=== PATIENT | female | born 1975 | race Caucasian/White ===

== ENCOUNTER 2020-01-30 11:40 | Inpatient (IN) ==
[~2020-01-30 11:40] MED LIST: *HR* HYDROmorphone (PF) 1 MG/ML SYRINGE IVP PRN; *HR* HYDROmorphone 2 MG TABLET PO PRN; *HR* Labetalol 20 MG/4 ML SYRINGE IVP PRN; *HR* OxyCODONE Immed Rel 5 MG TABLET PO PRN; *HR* Promethazine 25 MG/ML VIAL IVP PRN; Acetaminophen IV 1,000 MG/100 ML INFUS..BTL IVPB ONE; Famotidine 20 MG/2 ML VIAL IVP ONE; Pregabalin 75 MG CAPSULE PO ONE; Total Joint Mixture (50 ml) INTRAART ONE
[2020-01-30] MEDS ORDERED: Ondansetron 4 MG/2 ML VIAL ONE (12:00)
[2020-01-30] MEDS ORDERED: *HR* Propofol 200 MG/20 ML VIAL IVP ONE (12:00)
[2020-01-30] MEDS ORDERED: Dexamethasone 4 MG/ML VIAL ONE (12:00)
[2020-01-30] MEDS ORDERED: Lidocaine -MPF 2% 2 ML VIAL ONE (12:00)
[2020-01-30] MEDS ORDERED: *HR* Midazolam HCl 2 MG/2 ML VIAL ONE (12:06)
[2020-01-30] MEDS ORDERED: *HR* FentaNYL (PF) 100 MCG/2 ML VIAL ONE (12:06)
[2020-01-30] MEDS ORDERED: ROPIVACAINE/PF/NS 0.25% 1 EACH SYRINGE INTRAART ONE (12:12)
[2020-01-30] MEDS ORDERED: Vancomycin 1,500 MG/265 ML IV.SOLN IVPB ONE (12:16)
[2020-01-30] MEDS ORDERED: Ethanol\\Acetic Acid\\Na Ace\\Ben 1,000 ML IRRIG.SOLN IR ONE (12:28)
[2020-01-30] MEDS ORDERED: Vancomycin 1,000 MG VIAL ONE (12:28)
[2020-01-30] MEDS ORDERED: Ringers Solution, Lactated 1,000 ML IVC SCH ×2 (12:30→15:32)
[2020-01-30] MEDS ORDERED: *HR* Magnesium Sulfate 1 GM/2 ML VIAL ONE (13:05)
[2020-01-30] MEDS ORDERED: Tranexamic Acid 1,000 MG/10 ML VIAL ONE (13:05)
[2020-01-30] MEDS ORDERED: *HR* HYDROMORPHONE 2 MG/ML VIAL ONE (13:12)
[2020-01-30] MEDS ORDERED: *HR* PHENYLEPHRINE 1,000 MCG/10 ML SYRINGE IVP ONE (13:36)
[2020-01-30 14:50] LABS: Hematocrit 37.5 % (35.3-44.9); Hemoglobin 11.9 g/dL (11.5-15.4)
[2020-01-30] MEDS ORDERED: traZODone 50 MG TABLET PO PRN (15:32)
[2020-01-30] MEDS ORDERED: MOM Conc 10 ML UD.LIQ PO PRN (15:32)
[2020-01-30] MEDS ORDERED: Ondansetron 4 MG/2 ML VIAL IVP PRN (15:32)
[2020-01-30] MEDS ORDERED: D5% in Water 1,000 ML IVC PRN (15:32)
[2020-01-30] MEDS ORDERED: Sennosides 8.6 MG TABLET PO PRN (15:32)
[2020-01-30] MEDS ORDERED: *HR* Promethazine 25 MG/ML VIAL IVP PRN (15:32)
[2020-01-30] MEDS ORDERED: *HR* Dextrose 50 % in Water (Vial) 50 ML VIAL IVP PRN (15:32)
[2020-01-30] MEDS ORDERED: Dextrose Gel 15 GM/37.5 ML TUBE PO PRN ×2 (15:32)
[2020-01-30] MEDS ORDERED: Naloxone 0.4 MG/ML INJ IVP PRN (15:32)
[2020-01-30] MEDS: Ascorbic Acid 500 MG TABLET PO SCH (16:40)
[2020-01-30] MEDS: *HR* OxyCODONE Immed Rel 5 MG TABLET PO PRN (16:41)
[2020-01-30] MEDS: Gabapentin 400 MG CAPSULE PO SCH ×2 (16:42→21:58)
[2020-01-30] MEDS: Insulin LISPRO 300 UNITS/3 ML VIAL SQ SCH ×2 (18:12→21:31)
[2020-01-31] MEDS ORDERED: Vancomycin 1,500 MG/265 ML IV.SOLN IVPB ONE (01:00)
[2020-01-31] MEDS: Insulin LISPRO 300 UNITS/3 ML VIAL SQ SCH ×4 (08:17→21:21)
[2020-01-31] MEDS: Ascorbic Acid 500 MG TABLET PO SCH ×2 (08:22→15:23)
[2020-01-31] MEDS: Gabapentin 400 MG CAPSULE PO SCH ×3 (08:22→20:38)
[2020-01-31] MEDS: Multivit/Ca/Min/Fe/FA 1 TAB TABLET PO SCH (08:22)
[2020-01-31] MEDS: lisinopriL 20 MG TABLET PO SCH (08:23)
[2020-01-31] MEDS: Loratadine 10 MG TABLET PO SCH (08:23)
[2020-01-31] MEDS: Aspirin Enteric Coated 81 MG Tablet PO SCH (08:23)
[2020-01-31] MEDS ORDERED: Aspirin Enteric Coated 81 MG Tablet PO SCH (09:00)
[2020-01-31 11:31] LABS: Basophils # 0.1 K/mcL (0.0-0.2); Basophils % 0.3 %; Eosinophils % 0.1 %; Hematocrit 38.1 % (35.3-44.9); Hemoglobin 11.6 g/dL (11.5-15.4); Immature Granulocytes % 0.6 % (0-4); Lymphocytes # 1.5 K/mcL (0.6-4.6); Lymphocytes % 9.6 %; Mean Corpuscular HGB Conc 30.4 g/dL (31.6-35.5); Mean Corpuscular Hemoglobin 28.6 pg (28.0-33.3); Mean Corpuscular Volume 93.8 fL (83.0-100.0); Mean Platelet Volume 9.4 fL (9.4-12.4); Monocytes # 0.9 K/mcL (0.0-1.3); Monocytes % 5.4 %; Neutrophils # 13.3 K/mcL (1.6-8.9); Platelet Count 302 K/mcL (140-400); Red Blood Count 4.06 M/mcL (3.82-4.97); Red Cell Distribution Width 13.6 % (11.5-14.5); White Blood Count 15.8 K/mcL (4.3-11.1)
[2020-01-31 11:48] LABS: BUN/Creatinine Ratio 16 (6-26); Blood Urea Nitrogen 14 mg/dL (6-20); Calcium 8.6 mg/dL (8.6-10.3); Carbon Dioxide 24 mEq/L (23-29); Chloride 101 mEq/L (98-107); Glucose 152 mg/dL (70-105); Osmolality,Calculated 279 (280-300); Potassium 3.7 mEq/L (3.5-5.1); Sodium 133 mEq/L (136-145); eGFR For African Americans > 60 (> 60); eGFR For Non-African Americans > 60 (> 60)
[2020-01-31] MEDS: *HR* OxyCODONE Immed Rel 5 MG TABLET PO PRN ×2 (15:22→20:38)
[2020-02-01] MEDS: *HR* OxyCODONE Immed Rel 5 MG TABLET PO PRN ×5 (04:29→22:07)
[2020-02-01 05:01] LABS: Basophils # 0.1 K/mcL (0.0-0.2); Basophils % 0.8 %; Eosinophils # 0.1 K/mcL (0.0-0.6); Eosinophils % 0.5 %; Hematocrit 33.6 % (35.3-44.9); Hemoglobin 10.5 g/dL (11.5-15.4); Immature Granulocytes % 0.5 % (0-4); Lymphocytes # 2.9 K/mcL (0.6-4.6); Lymphocytes % 28.7 %; Mean Corpuscular HGB Conc 31.3 g/dL (31.6-35.5); Mean Corpuscular Hemoglobin 29.4 pg (28.0-33.3); Mean Corpuscular Volume 94.1 fL (83.0-100.0); Mean Platelet Volume 9.5 fL (9.4-12.4); Monocytes # 0.9 K/mcL (0.0-1.3); Monocytes % 8.9 %; Neutrophils # 6.2 K/mcL (1.6-8.9); Platelet Count 250 K/mcL (140-400); Red Blood Count 3.57 M/mcL (3.82-4.97); Red Cell Distribution Width 13.7 % (11.5-14.5); Segmented Neutrophils % 60.6 %; White Blood Count 10.3 K/mcL (4.3-11.1)
[2020-02-01 05:18] LABS: BUN/Creatinine Ratio 19 (6-26); Blood Urea Nitrogen 12 mg/dL (6-20); Calcium 8.3 mg/dL (8.6-10.3); Carbon Dioxide 27 mEq/L (23-29); Chloride 103 mEq/L (98-107); Glucose 119 mg/dL (70-105); Osmolality,Calculated 283 (280-300); Potassium 4.4 mEq/L (3.5-5.1); Sodium 136 mEq/L (136-145); eGFR For African Americans > 60 (> 60); eGFR For Non-African Americans > 60 (> 60)
[2020-02-01] MEDS: Insulin LISPRO 300 UNITS/3 ML VIAL SQ SCH ×4 (08:35→22:26)
[2020-02-01] MEDS: Gabapentin 400 MG CAPSULE PO SCH ×3 (08:47→20:14)
[2020-02-01] MEDS: Loratadine 10 MG TABLET PO SCH (08:48)
[2020-02-01] MEDS: Aspirin Enteric Coated 81 MG Tablet PO SCH (08:48)
[2020-02-01] MEDS: Multivit/Ca/Min/Fe/FA 1 TAB TABLET PO SCH (08:48)
[2020-02-01] MEDS: lisinopriL 20 MG TABLET PO SCH (08:48)
[2020-02-01] MEDS: Ascorbic Acid 500 MG TABLET PO SCH ×2 (08:49→15:36)
[2020-02-01] MEDS: HYDROcodone BIT/Homatropine 5 MG TABLET PO PRN ×3 (10:43→20:14)
[2020-02-02] MEDS: HYDROcodone BIT/Homatropine 5 MG TABLET PO PRN ×2 (00:16→04:16)
[2020-02-02 01:30] LABS: Basophils # 0.1 K/mcL (0.0-0.2); Basophils % 0.8 %; Eosinophils # 0.1 K/mcL (0.0-0.6); Eosinophils % 1.1 %; Hematocrit 32.8 % (35.3-44.9); Hemoglobin 10.2 g/dL (11.5-15.4); Immature Granulocytes % 0.6 % (0-4); Lymphocytes # 2.8 K/mcL (0.6-4.6); Lymphocytes % 29.6 %; Mean Corpuscular HGB Conc 31.1 g/dL (31.6-35.5); Mean Corpuscular Hemoglobin 29.3 pg (28.0-33.3); Mean Corpuscular Volume 94.3 fL (83.0-100.0); Mean Platelet Volume 9.4 fL (9.4-12.4); Monocytes # 0.7 K/mcL (0.0-1.3); Monocytes % 7.9 %; Neutrophils # 5.6 K/mcL (1.6-8.9); Platelet Count 245 K/mcL (140-400); Red Blood Count 3.48 M/mcL (3.82-4.97); Red Cell Distribution Width 13.8 % (11.5-14.5); White Blood Count 9.3 K/mcL (4.3-11.1)
[2020-02-02 01:42] LABS: BUN/Creatinine Ratio 15 (6-26); Blood Urea Nitrogen 11 mg/dL (6-20); Calcium 8.6 mg/dL (8.6-10.3); Carbon Dioxide 30 mEq/L (23-29); Chloride 102 mEq/L (98-107); Glucose 168 mg/dL (70-105); Osmolality,Calculated 283 (280-300); Potassium 4.5 mEq/L (3.5-5.1); Sodium 135 mEq/L (136-145); eGFR For African Americans > 60 (> 60); eGFR For Non-African Americans > 60 (> 60)
[2020-02-02] MEDS: *HR* OxyCODONE Immed Rel 5 MG TABLET PO PRN ×3 (02:17→10:22)
[2020-02-02] MEDS: Insulin LISPRO 300 UNITS/3 ML VIAL SQ SCH ×2 (07:27→12:38)
[2020-02-02] MEDS: Gabapentin 400 MG CAPSULE PO SCH (08:31)
[2020-02-02] MEDS: Aspirin Enteric Coated 81 MG Tablet PO SCH (08:31)
[2020-02-02] MEDS: Multivit/Ca/Min/Fe/FA 1 TAB TABLET PO SCH (08:31)
[2020-02-02] MEDS: Ascorbic Acid 500 MG TABLET PO SCH (08:31)
[2020-02-02] MEDS: Loratadine 10 MG TABLET PO SCH (08:32)
[2020-02-02] MEDS: lisinopriL 20 MG TABLET PO SCH (08:32)
[2020-02-02 11:44] VITALS: BP 135/88
== END 2020-02-02 14:49 | disposition home health service (06) | DRG 468 ==
LOC: SAMDAY 11:40 → 3NENU 15:29
PROVIDERS: ADMIT Orthopaedic Surgery; ATTEND Orthopaedic Surgery

== ENCOUNTER 2022-01-12 06:01 | Inpatient (IN) ==
[2022-01-12] MEDS ORDERED: Ringers Solution, Lactated 1,000 ML IVC SCH ×2 (06:30→11:43)
[2022-01-12] MEDS ORDERED: *HR* Midazolam HCl 2 MG/2 ML VIAL ONE (06:47)
[2022-01-12] MEDS ORDERED: *HR* FentaNYL (PF) 100 MCG/2 ML VIAL ONE (06:47)
[2022-01-12] MEDS ORDERED: *HR* Propofol 200 MG/20 ML VIAL IVP ONE (06:47)
[2022-01-12] MEDS ORDERED: Lidocaine -MPF 2% 5 ML VIAL ONE (06:50)
[2022-01-12] MEDS ORDERED: Lidocaine HCL 4 ML Topical Solution (Laryng-O-Jet Kit Sterile Pak) TP ONE (06:50)
[2022-01-12] MEDS ORDERED: *HR* Rocuronium Bromide 50 MG/5 ML VIAL ONE (06:50)
[2022-01-12] MEDS ORDERED: Ketamine HCL *QUVA* 50mg (1mL) SYRINGE ONE (06:52)
[2022-01-12] MEDS ORDERED: Ropivacaine/PF 0.5% 30 ML VIAL ONE (06:53)
[2022-01-12] MEDS ORDERED: ROPIVACAINE/PF/NS 0.25% 1 EACH SYRINGE INTRAART ONE (06:53)
[2022-01-12] MEDS ORDERED: Vancomycin 1,500 MG/265 ML IV.SOLN IVPB ONE ×2 (07:00→22:00)
[2022-01-12] MEDS ORDERED: Acetaminophen IV 1,000 MG/100 ML BAG IVPB ONE (07:00)
[2022-01-12] MEDS ORDERED: Famotidine 20 MG/2 ML VIAL IVP ONE (07:00)
[2022-01-12] MEDS ORDERED: Povidone-Iodine 45 ML, Sodium Chloride IRRigation 1,000 ML IR ONE (07:30)
[2022-01-12] MEDS ORDERED: TOTAL JOINT MIXTURE (100ML) INTRAART ONE (07:30)
[2022-01-12] MEDS ORDERED: Ondansetron 4 MG/2 ML VIAL ONE (07:34)
[2022-01-12] MEDS ORDERED: Tranexamic Acid 1,000 MG/10 ML VIAL ONE (07:35)
[2022-01-12] MEDS ORDERED: Sugammadex Sodium 200 MG/2 ML VIAL IV ONE (07:41)
[2022-01-12] MEDS ORDERED: *HR* HYDROMORPHONE 2 MG/ML VIAL ONE (09:14)
[2022-01-12] MEDS ORDERED: Ketorolac 30 MG/ML VIAL ONE (09:15)
[2022-01-12] MEDS ORDERED: *HR* Promethazine 25 MG/ML VIAL IM PRN (11:43)
[2022-01-12] MEDS ORDERED: Sennosides 8.6 MG TABLET PO PRN (11:43)
[2022-01-12] MEDS ORDERED: MOM Conc 10 ML UD.LIQ PO PRN (11:43)
[2022-01-12] MEDS ORDERED: Naloxone 0.4 MG/ML INJ IVP PRN (11:43)
[2022-01-12] MEDS ORDERED: *HR* OxyCODONE Immed Rel 5 MG TABLET PO PRN (11:43)
[2022-01-12] MEDS ORDERED: Ondansetron 4 MG/2 ML VIAL IVP PRN (11:43)
[2022-01-12] MEDS ORDERED: traZODone 50 MG TABLET PO PRN (11:43)
[2022-01-12] MEDS ORDERED: *HR* HYDROmorphone (PF) 1 MG/ML SYRINGE IVP PRN (11:43)
[2022-01-12] MEDS: Ketorolac 30 MG/ML VIAL IVP SCH ×2 (12:40→18:03)
[2022-01-12] MEDS: Gabapentin 400 MG CAPSULE PO SCH ×2 (14:13→19:44)
[2022-01-12] MEDS ORDERED: D5% in Water 1,000 ML IVC PRN (15:33)
[2022-01-12] MEDS ORDERED: Dextrose Gel 15 GM/37.5 ML TUBE PO PRN ×2 (15:33)
[2022-01-12] MEDS ORDERED: *HR* Dextrose 50 % in Water (Syg) 50 ML SYRINGE IVP PRN (15:33)
[2022-01-12] MEDS: Ascorbic Acid 500 MG TABLET PO SCH (18:02)
[2022-01-12] MEDS: Insulin LISPRO 300 UNITS/3 ML VIAL SUBQ SCH (18:03)
[2022-01-13] MEDS: Ketorolac 30 MG/ML VIAL IVP SCH ×3 (00:37→12:07)
[2022-01-13] MEDS: *HR* OxyCODONE Immed Rel 5 MG TABLET PO PRN ×3 (04:09→14:54)
[2022-01-13 04:39] LABS: Basophils % 0.1 %; Hematocrit 32.8 % (35.3-44.9); Hemoglobin 10.7 g/dL (11.5-15.4); Immature Granulocytes % 0.5 % (0-4); Lymphocytes % 6.1 %; Mean Corpuscular HGB Conc 32.6 g/dL (31.6-35.5); Mean Corpuscular Hemoglobin 27.9 pg (28.0-33.3); Mean Corpuscular Volume 85.4 fL (83.0-100.0); Mean Platelet Volume 9.7 fL (9.4-12.4); Neutrophils # 14.5 K/mcL (1.6-8.9); Platelet Count 267 K/mcL (140-400); Red Blood Count 3.84 M/mcL (3.82-4.97); Red Cell Distribution Width 14.5 % (11.5-14.5); Segmented Neutrophils % 87.3 %; White Blood Count 16.7 K/mcL (4.3-11.1)
[2022-01-13 04:53] LABS: BUN/Creatinine Ratio 19 (6-26); Blood Urea Nitrogen 11 mg/dL (6-20); Calcium 8.6 mg/dL (8.6-10.3); Carbon Dioxide 22 mEq/L (23-29); Chloride 102 mEq/L (98-107); Glucose 160 mg/dL (70-105); Osmolality,Calculated 279 (280-300); Potassium 4.2 mEq/L (3.5-5.1); Sodium 133 mEq/L (136-145)
[2022-01-13 07:16] VITALS: O2SAT 96
[2022-01-13] MEDS: Insulin LISPRO 300 UNITS/3 ML VIAL SUBQ SCH ×2 (07:41→12:32)
[2022-01-13] MEDS: Ascorbic Acid 500 MG TABLET PO SCH (07:49)
[2022-01-13] MEDS: Gabapentin 400 MG CAPSULE PO SCH ×2 (07:50→14:55)
[2022-01-13] MEDS ORDERED: Loratadine 10 MG TABLET PO SCH (09:00)
[2022-01-13] MEDS ORDERED: Multivit/Ca/Min/Fe/FA 1 TAB TABLET PO SCH (09:00)
[2022-01-13] MEDS ORDERED: lisinopriL 20 MG TABLET PO SCH (09:00)
[2022-01-13] MEDS ORDERED: Aspirin Enteric Coated 325 MG Tablet PO SCH (10:04)
[2022-01-13 11:37] VITALS: BP 148/85; PULSE 79; TEMP 98
[2022-01-13] MEDS ORDERED: GI Cocktail 40 ML EACH PO ONE (11:44)
== END 2022-01-13 16:51 | disposition home health service (06) | DRG 467 ==
LOC: SDCAOSI 06:01 → 4WAOSI 11:24
PROVIDERS: ADMIT Orthopaedic Surgery; ATTEND Orthopaedic Surgery